=== PATIENT | female | born 1985 | race Caucasian/White ===

== ENCOUNTER 2017-10-24 07:02 | Day surgery (SDC) | payer OTHER, SELFPAY ==
[2017-10-22 08:45] VITALS: BMI 38.4
[2017-10-24] VITALS (7 sets, daily range): BP systolic 107–141; BP diastolic 70–90; PULSE 61–84; RESP 14–17; TEMP 36.1–36.4; O2SAT 93–98; BMI 38.5
--- NOTE | 2017-10-24 07:35 | SUR.OPER ---
Lithotomy on padded OR bed, head on pillow, arms secured on padded arm boards at <90 degrees abduction. Legs secured in padded yellow fins stirrups.
[2017-10-24] MEDS: LACTATED RINGERS 1,000 ML 100 ML IV (07:41)
--- NOTE | 2017-10-24 07:49 | PM.PREOP ---
Pre-operative Note Interval Note Pre-op Check: History & Physical exam performed today
--- NOTE | 2017-10-24 07:50 | PM.HP.1 ---
History of Present Illness Date Patient Seen: 10/24/17 Time Patient Seen: 07:50 Chief complaint: [id number] Narrative: Patient here for an examination under anesthesia with excision of granulation tissue Patient History Medical History Asthma (Acute) External hemorrhoids (Acute) Fracture of both ankles (Acute) Fracture, clavicle (Acute) History of HPV infection (Acute) Family & Social History Social History: household members significant other Tobacco & Substance use: Smoking Status Never smoker Meds Home Medications Medication Instructions Recorded Confirmed Type Breast Pump - Double Electric ea PRN PRN #1 03/18/17 Rx docusate sodium 250 mg PO QDAY #20 cap 06/13/17 Rx oxycodone-acetaminophen 0 tab PO Q4HP PRN #30 06/13/17 Rx levonorgestrel [Mirena] 52 mg INTRAU #0 08/22/17 History hydrocortisone 1 gm TOPICAL BIDP PRN #30 gm 08/28/17 Rx Allergies Allergy/AdvReac Type Severity Reaction Status Date / Time No Known Drug Allergies Allergy Unknown Verified 10/24/17 07:14 [NO KNOWN DRUG ALLERGIES] Exam Vital Signs (past 8 hours): Vital Signs - 8 hr 10/24/17 07:27 Temperature 97.2 F L Pulse Rate 83 Respiratory Rate 16 Blood Pressure 141/90 H Pulse Oximetry 98 Pulse Oximetry 98 Oxygen Delivery Method Room Air Narrative Exam Narrative: HEENT: No thyromegaly, no anterior cervical or supraclavicular lymphadenopathy. Lungs:Clear to auscultation bilaterally, no wheezes. Cardiovascular: Regular rate and rhythm, no murmurs, rubs, or gallops. Abdomen: No scars. No hepatosplenomegaly. No masses palpable. External genitalia: Normal] Vagina: Patient has granulation tissue of the left vaginal wall. The remainder of the exam was difficult due to patient discomfort. Cervix: [Normal] Bimanual exam: 6 Week size uterus. Mobile.] Rectal: [No masses]. Assessment & Plan (1) Granulation tissue at obstetrical laceration site: Current visit: Yes Status: Acute (2) Vaginal bleeding: Current visit: Yes Status: Acute Plan: Assessment/Plan Narrative: Assessment: 32-year-old 1 para 1 with granulation tissue at an obstetrical laceration site Vaginal bleeding Plan: Examination under anesthesia Excision of granulation tissue The risks, benefits, and alternatives to the procedure were explained to the patient. The risks including bleeding or infection. A full capital P AR-Q was held and consent form was signed.
--- NOTE | 2017-10-24 07:53 | P.HP_ITS ---
History of Present Illness Date Patient Seen: 10/24/17 Time Patient Seen: 07:50 Chief complaint: [id number] Narrative: Patient here for an examination under anesthesia with excision of granulation tissue Patient History Medical History Asthma (Acute) External hemorrhoids (Acute) Fracture of both ankles (Acute) Fracture, clavicle (Acute) History of HPV infection (Acute) Family & Social History Social History: household members significant other Tobacco & Substance use: Smoking Status Never smoker Meds Home Medications Medication Instructions Recorded Confirmed Type Breast Pump - Double Electric ea PRN PRN #1 03/18/17 Rx docusate sodium 250 mg PO QDAY #20 cap 06/13/17 Rx oxycodone-acetaminophen 0 tab PO Q4HP PRN #30 06/13/17 Rx levonorgestrel [Mirena] 52 mg INTRAU #0 08/22/17 History hydrocortisone 1 gm TOPICAL BIDP PRN #30 gm 08/28/17 Rx Allergies Allergy/AdvReac Type Severity Reaction Status Date / Time No Known Drug Allergies Allergy Unknown Verified 10/24/17 07:14 [NO KNOWN DRUG ALLERGIES] Exam Vital Signs (past 8 hours): Vital Signs - 8 hr 3 10/24/17 07:27 Temperature 97.2 F L Pulse Rate 83 Respiratory Rate 16 Blood Pressure 141/90 H Pulse Oximetry 98 Pulse Oximetry 98 Oxygen Delivery Method Room Air Narrative Exam Narrative: HEENT: No thyromegaly, no anterior cervical or supraclavicular lymphadenopathy. Lungs:Clear to auscultation bilaterally, no wheezes. Cardiovascular: Regular rate and rhythm, no murmurs, rubs, or gallops. Abdomen: No scars. No hepatosplenomegaly. No masses palpable. External genitalia: Normal] Vagina: Patient has granulation tissue of the left vaginal wall. The remainder of the exam was difficult due to patient discomfort. Cervix: [Normal] Bimanual exam: 6 Week size uterus. Mobile.] Rectal: [No masses]. Assessment & Plan (1) Granulation tissue at obstetrical laceration site: Current visit: Yes Status: Acute (2) Vaginal bleeding: Current visit: Yes Status: Acute Plan: Assessment/Plan Narrative: Assessment: 32-year-old 1 para 1 with granulation tissue at an obstetrical laceration site Vaginal bleeding Plan: Examination under anesthesia Excision of granulation tissue The risks, benefits, and alternatives to the procedure were explained to the patient. The risks including bleeding or infection. A full capital P AR-Q was held and consent form was signed.
[2017-10-24] MEDS: CEFAZOLIN 2 GM/100 ML FROZ.PIGGY IV (08:02)
--- NOTE | 2017-10-24 08:58 | PM.GYNOP.1 ---
Operative Date/Time/Diagnoses - Date of procedure: 10/24/17 Time of procedure: 08:58 Pre-op diagnosis: Vaginal granulation tissue Vaginal bleeding Post-op diagnosis: same Procedure: Procedures Operation Date: 10/24/17 07:45 Actual Procedures Side Surgeon p Exam Under Anesthesia CAMERA TUNING ENGINEER - Excision of Ganulation Tissue Payal Montes MD Patient is a 32-year-old 1 para 1 with granulation tissue of the vagina causing vaginal bleeding Indications: Vaginal granulation tissue at obstetrical laceration site Vaginal bleeding Surgeon: Payal Montes Anesthesia Type: General (LMA) Operative Notes Findings: 3 areas of granulation tissue. A 1 cm area on the left vaginal sidewall midway between the introitus and cervix. A 0.5 cm area of granulation tissue on the left vaginal sidewall approximately 3 cm from the introitus. A 0.5 cm area of granulation tissue at the introitus in the midline. Closure Type: primary Specimen(s): none Estimated blood loss (mL): 2 Blood products transfused: none Procedure in detail: After informed consent was obtained, the patient was taken to the operating room where she was placed in the dorsal supine position. After adequate LMA general anesthesia was achieved, she was placed in the dorsal lithotomy position, and prepped and draped in the usual sterile fashion. A weighted speculum was placed into the vagina. The cervix was examined and was found to be normal. On the left vaginal sidewall there were 2 areas of granulation tissue. These were excised with a # 10 blade and the base of the granulation tissue was cauterized with the Bovie. At the introitus there was a 3rd piece of granulation tissue which was also excised and cauterized. Hemostasis was achieved. The remainder of the vagina was inspected and there were no further areas of granulation tissue. The bivalve speculum was removed from the vagina. Complications: none Post-operative Condition: stable Disposition: PACU Plan for aftercare: Home after recovery
--- NOTE | 2017-10-24 09:39 | SUR.PHASEII ---
patient resting in bed with Aunt and infant at bedside. Pt ready for depart but awaiting father to return from pharmacy. VSS, deneis complaints at this time.
--- NOTE | 2017-10-24 09:51 | SUR.PHASEII ---
resting while waiting for family to return from pharmacy. up ambulatory in department voided without difficulty.
== END 2017-10-24 09:52 | disposition home or self-care (01) ==
PROVIDERS: PCP Obstetrics & Gynecology; Visit Provider Obstetrics & Gynecology
PROC: (CPT 57410; principal; 2017-10-24 07:45)
DX: A58 Granuloma inguinale (principal); N94.10 Unspecified dyspareunia; N93.9 Abnormal uterine and vaginal bleeding, unspecified; J45.909 Unspecified asthma, uncomplicated
CPT/HCPCS: 57135; J0690; J1100; J1885; J2250; J2405; J2704; J3010

== ENCOUNTER → 2019-11-09 12:11 | Outpatient (CLI) | payer OTHER, SELFPAY ==
--- NOTE | 2019-11-09 12:13 | DI.US.S_ITS ---
PROCEDURE: US PELVIC COMPLETE INDICATIONS: IUD; DUB TECHNIQUE: Real-time scanning was performed of the pelvic organs, with image documentation. Additional endovaginal scanning was necessary due to incomplete visualization of the adnexal and endometrial structures by transabdominal scanning. COMPARISON: [facility], US, US PELVIC COMPLETE, 10/21/2017, 9:28. FINDINGS: Transabdominal scanning: Limited scanning through the kidneys shows no hydronephrosis. No pathologic free abdominal or pelvic fluid. Endovaginal scanning: Uterus: Uterus is normal in size at 6.3 x 3.2 x 4.1 cm. The endometrium measures 3-4 mm in combined thickness. Appropriately positioned IUD. Ovaries: Right ovary measures 2.4 x 1.8 x 2.4 cm. Left ovary measures 2.8 x 1.4 x 2.0 cm. There are bilateral simple appearing presumed physiologic follicles measuring up 1.5 cm on the right and 2.5 cm on the left. IMPRESSION: Appropriately positioned IUD. Unremarkable examination as above. Dictated by: Devin Alvarado M.D. on 11/09/2019 at 13:39 Approved by: Devin Alvarado M.D. on 11/09/2019 at 13:45
== END ==
PROVIDERS: PCP Family Medicine; Referring Provider Family Medicine; Visit Provider Family Medicine
DX: N92.0 Excessive and frequent menstruation with regular cycle (principal); T83.83XA Hemorrhage due to genitourinary prosthetic devices, implants and grafts, initial encounter; Y76.8 Miscellaneous obstetric and gynecological devices associated with adverse incidents, not elsewhere classified
CPT/HCPCS: 76830; 76856

== ENCOUNTER → 2020-08-08 15:43 | Outpatient (CLI) | payer OTHER, SELFPAY ==
[2020-08-08] MEDS: COVID-19 VACC #1, MRNA(MOD) 100 MCG/0.5 ML VIAL IM (16:01)
== END ==
PROVIDERS: PCP Family Medicine; Visit Provider Internal Medicine
DX: Z23 Encounter for immunization (principal)
CPT/HCPCS: 0011A; 91301

== ENCOUNTER → 2020-09-06 12:10 | Outpatient (CLI) | payer OTHER, SELFPAY ==
[2020-09-06] MEDS: COVID-19 VACC #2, MRNA(MOD) 100 MCG/0.5 ML VIAL IM (12:16)
== END ==
PROVIDERS: PCP Family Medicine; Visit Provider Internal Medicine
DX: Z23 Encounter for immunization (principal)
CPT/HCPCS: 0012A; 91301

== ENCOUNTER → 2020-12-27 15:44 | Outpatient (CLI) | payer OTHER, SELFPAY ==
--- NOTE | 2020-12-27 15:46 | DI.RAD.S_ITS ---
PROCEDURE: XR ANKLE RT MIN 3V INDICATIONS: rolled R ankle, lat malleolar tender, sharp pain w/walking TECHNIQUE: 3 views of the ankle were acquired. COMPARISON: None. FINDINGS: Bones: No fractures or dislocations. Ankle mortise is normally aligned. No suspicious bony lesions. Soft tissues: No tibiotalar joint effusion. Achilles tendon appears normal. IMPRESSION: No acute fracture. No osseous lesion. If symptoms and/or clinical suspicion for pathology persist, further assessment with repeat, or advanced imaging (e.g., CT, MRI, or bone scan) may be helpful for further assessment. Dictated by: Nishi Escobedo M.D. on 12/27/2020 at 16:10 Approved by: Nishi Escobedo M.D. on 12/27/2020 at 16:10
== END ==
PROVIDERS: PCP Family Medicine; Referring Provider Student in an Organized Health Care Education/Training Program; Visit Provider Student in an Organized Health Care Education/Training Program
DX: M25.471 Effusion, right ankle; M25.571 Pain in right ankle and joints of right foot; S93.401A Sprain of unspecified ligament of right ankle, initial encounter; S96.911A Strain of unspecified muscle and tendon at ankle and foot level, right foot, initial encounter; X58.XXXA Exposure to other specified factors, initial encounter
CPT/HCPCS: 73610

== ENCOUNTER → 2021-11-27 07:37 | Outpatient (CLI) | payer OTHER, SELFPAY ==
--- NOTE | 2021-11-27 | DI.US.S_ITS ---
PROCEDURE: US OB >= 14 WEEKS FETUS INDICATIONS: 20WK ANATOMY SCAN OUTSIDE/PRIOR DATING DATA: Last menstrual period (LMP): 06/27/2021. LMP-based estimated date of delivery (JOBY): 04/03/2022. First dating scan (date and location): 11/27/2021, . Estimated date of delivery (JOBY) from first dating scan: 04/01/2022. TECHNIQUE: Real-time scanning was performed of the fetus, with image documentation and biometric measurements. Endovaginal scanning: Not performed COMPARISON: None. FINDINGS: General: A single living intrauterine gestation is present. Presentation: Breech. Placenta: Placental position is anterior , without previa. Amniotic fluid index: 15.7 cm, normal range is 5-24 cm. Single deepest vertical pocket is 5.1 cm. heart rate: 150 beats per minute. Maternal cervical canal: 4.2 cm long. Normal lower limit is 2.5 cm. biometrics: Biparietal diameter: 5.4 cm, 22 weeks 3 days Head circumference: 20.1 cm, 22 weeks 2 days Abdominal circumference: 17.2 cm, 22 weeks 1 day Femur length: 3.6 cm, 21 weeks 3 days Clinically estimated gestational age: 21 weeks 6 days Composite gestational age from present scan: 22 weeks 1 day Estimated weight and percentile: 458 g, 45th percentile Anatomic survey: Neuro: Ventricles are non-dilated at less than 10 mm. Cisterna magna is normal at 3-11 mm. Cerebellum is normal in size and morphology. Nuchal skin fold: Normal at less than 6 mm between 14-21 weeks gestational age. Face: Nose and lips, facial profile are normal. Spine: No evidence for spina bifida. Heart: 4-chambered heart is present, with normal ventricular outflow tracts. Diaphragm: Diaphragm is intact. Stomach: Left-sided stomach is present. Kidneys: No hydronephrosis. Normal is less than 5 mm in 2nd trimester, less than 7 mm in 3rd trimester. Cord: 3-vessel cord has orthotopic insertion. Bladder: Normal in size. Extremities: All 4 extremities identified. IMPRESSION: 1. Single living intrauterine with gestational age of 21 weeks 6 days by LMP. 2. Normal 2nd trimester anatomy survey. No anomalies detected at this time. We strive to produce accurate, complete, and clear reports of imaging services. To assist us in improving patient care, this report was composed using standard report templates and voice recognition software. Therefore, it may contain abnormal punctuation, insertions and/or omissions. Occasional wrong-word or sound-alike substitutions may occur. Though we review the report and make efforts to correct it, we do recommend that the report be read carefully in proper context to recognize any text inaccuracies. Dictated by: Josh Martin M.D. on 11/27/2021 at 8:57 Approved by: Josh Martin M.D. on 11/27/2021 at 9:05
== END ==
PROVIDERS: PCP Family Medicine; Referring Provider Nurse Practitioner Obstetrics & Gynecology; Visit Provider Nurse Practitioner Obstetrics & Gynecology
DX: Z34.92 Encounter for supervision of normal pregnancy, unspecified, second trimester (principal); Z3A.21 21 weeks gestation of pregnancy
CPT/HCPCS: 76811

== ENCOUNTER → 2022-01-14 07:02 | Outpatient (CLI) | payer OTHER, SELFPAY ==
[2022-01-14 08:19] LABS: Hematocrit 33.9 % (36-46); Mean Corpuscular HGB Conc 35.4 % (30-36); Mean Corpuscular Hemoglobin 30.7 PG (26-34); Mean Corpuscular Volume 86.7 fL (80-100); Platelet Count 216 X10^3/uL (150-400); Red Blood Cell Count 3.91 X10^6/uL (4.0-5.2); Red Cell Distribution Width 13.9 % (11.6-14.8); White Blood Cell Count 7.2 X10^3/uL (4.5-11.0)
[2022-01-14 08:25] LABS: Glucose Fasting Gestational 103 mg/dL (76-95)
[2022-01-14 09:18] LABS: Glucose 1 Hour Gest 220 mg/dL (76-180)
[2022-01-14 10:37] LABS: Glucose Tol Interp,Gestational INTERPRETATION
[2022-01-14 11:16] LABS: Glucose 2 Hour Gest 146 mg/dL (76-155)
[2022-01-14 11:55] LABS: Glucose 3 Hour Gest 84 mg/dL (76-140)
== END ==
PROVIDERS: PCP Family Medicine; Referring Provider Nurse Practitioner Obstetrics & Gynecology; Visit Provider Nurse Practitioner Obstetrics & Gynecology
DX: Z34.90 Encounter for supervision of normal pregnancy, unspecified, unspecified trimester (principal); Z13.1 Encounter for screening for diabetes mellitus; Z3A.26 26 weeks gestation of pregnancy
CPT/HCPCS: 36415; 82951; 82952; 85027

== ENCOUNTER → 2022-01-17 14:31 | Outpatient (CLI) | payer OTHER, SELFPAY ==
--- NOTE | 2022-01-17 16:23 | DIAB.GDA ---
Initial Gestational Diabetes Assessment Name: Laurie Arnold Date: 01/17/22 Time: 240-4p Dx: Gestational Diabetes Provider: Sidney JOBY: 04/04/22 Weeks: 29 Laurie presents today with her partner, Karl. Reports FH of T2Dm on both sides of her family, not her parents. Reports an uncle in his 60s from DM complications. Both grandmothers with T2 and one grandfather and a number of maternal aunts. No PMH of GDM with last . Reports went to 42 weeks and baby was 8#. Forceps at delivery. Very sure she does not want a . She is having a boy! Reports h/o low carb diets. After elevated 141mg/dL screen, reports she cut out most carbs. Since elevated OGTT, she has read multiple articles, listened to multiple podcasts, and ordered a GDM book. 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 Avoids gluten. No formal diagnosis of celiac but IBS-like symptoms with gluten consumption. Has been experiencing insomnia with this . Treating with help from Sidney. She is aware of how sleep impacts FBG. Endorses normal HgA1c in the past and normal glucose screen earlier in of 130s mg/dL. Worries about high FBG from OGTT. States she cannot continue with Sidney if managing GDM with meds. Would like to see Claudiaedmar if she needs medication management. Diet Recall: 8a: low carb bread with butter, egg, cheese, avocado, 1/4c berries 1220p: meat, cheese, pro shake 145p: asuncion no noodles with extra veggies and 1/2 small chip bag 5-7p: keto pizza skillet ; pro and veggie 7-8p: keto ice cream Beverages: 24oz x 3-4 water, +/- electrolyte supplement, calm magnesium powder in water (no diarrhea), coffee with low carb creamer 0-1c Anthropometrics: Ht: 5'3 Wt: 237# reported Prepregnancy wt: unsure; EMR records indicate 214.5# 12/2020 Physical Activity: Walking 30 min daily Self-Monitoring Blood Glucose: Just started checking BG. Plans to check-in with Sidney in one week. One FBG for review in goal, which was surprising to her given her elevated FBG during OGTT. No elevations at 1 hour postprandial, but this is on a very low carb diet. Unclear how high BG would be once she incorporates some carbs. States provider would like to use [employer] guidelines for BG (FBG <90 and 1 hour <130). States she has spoken with provider and would like to follow ACOG/ADA guidelines (FBG <95 and 1 hour <140), and states provider has agreed. RD/GEORGE will evaluate based on this goal unless communicated otherwise. Date Pre Post Pre Post Pre Post HS 01/16 119 97 111 01/17 87 105 114 Diabetes Medications: None Pertinent Labs: OGTT: 103 H; 220 H; 146; 84 Nutrition Rx: REE 2300-2400kcals (indicates about 225g CHO daily. Given very low carb diet, will rec 175g as the min goal for RUBY RAILS DEVELOPER during ) Carbohydrates: Daily: goal of 175g Meal: 45-g lunch and dinner; 30g breakfast Snack: 15-30g Nutrition Diagnosis: Altered nutrition related lab value r/t GDM dx aeb recent OGTT Inadequate CHO intake r/t fear of hyperglycemia aeb pt report and diet recall Intervention: This participant was very receptive. Provided appropriate educational handouts. Discussed the following topics: GDM pathophysiology and impact of hyperglycemia on mom and baby Risk for T2DM for mom and baby in the future Plate Method, meal timing, carb counting, pairing macronutrients and spreading out CHO for better BG management Blood glucose goals (FBG: <95 and 1 hour <140 mg/dL); importance of checking 4x per day (FBG and pc) Impact of macronutrients on blood glucose Recommended servings for carbohydrates at meals and snacks Brainstormed appropriate meal plan based on her food preferences Importance of adequate nutrition AND GDM management Potential for meds prn Encouraged her to gradually increase carb to recs. She did seem hesitant to start at 175g per day. Will cont to monitor. Role of physical activity and following provider guidelines for safety Goals: Check BG 4x per day Continue walking Add carbs to meals Pair carbs/pro Follow-up: LORENZO VAZQUEZ follow-up in two weeks Janelle Salamanca RDN, GEORGE Certified Diabetes Care and Boat Dispatcher T: [phone] F: [phone] [email or web address] Thank you for this referral
== END ==
PROVIDERS: PCP Family Medicine; Referring Provider Nurse Practitioner Obstetrics & Gynecology; Visit Provider Nurse Practitioner Obstetrics & Gynecology
DX: O24.419 Gestational diabetes mellitus in pregnancy, unspecified control (principal); Z3A.29 29 weeks gestation of pregnancy; Z71.3 Dietary counseling and surveillance
CPT/HCPCS: 97802

== ENCOUNTER → 2022-01-31 16:37 | Outpatient (CLI) | payer OTHER, SELFPAY ==
--- NOTE | 2022-01-31 17:30 | DIAB.GDFU ---
Follow-up Gestational Diabetes Assessment Name: Laurie Arnold Date: 01/31/22 Time: 199-121p Dx: Gestational Diabetes Provider: Sidney JOBY: 04/04/22 Weeks: 31 Laurie presents for follow-up visit today. Saw provider and reports she is titrating insulin (Levemir) to meet [employer] SMBG goals (FBG <90 mg/dL). Increasing insulin by 3u q day until FBG in goal per report. See SMBG below. Reports increasing some carb intake, but she is still under MINE TECHNICIAN of 175g per day. Most days consuming around 130-140g CHO. Carb sources mostly from fruit and bread. Eating q 2 hours and feeling quite full. Reports decrease in LE swelling and heartburn over the last two weeks. Swelling reduced from increase in activity? Heartburn likely reduced since eating small frequent meals. Anthropometrics: Ht: 5'3 Wt: 237.2# reported from provider visit today. No change in wt since last visit. Prepregnancy wt: unsure; EMR records indicate 214.5# 12/2020 Physical Activity: Walking 2.2 mi per day. HIIT GDM workouts 4x per week. Self-Monitoring Blood Glucose: After meal readings all in goal. 09/22 elevated FBG per <90mg/dL goal. Date Pre Post Pre Post Pre Post HS 01/25 115 117 92 114 01/26 100 125 123 114 01/27 83 106 116 109 01/28 90 108 131 114 01/29 100 104 108 105 01/30 95 140 114 123 01/31 104 122 104 Diabetes Medications: 14u Levemir HS Pertinent Labs: OGTT: 103 H; 220 H; 146; 84 Nutrition Rx: REE 2300-2400kcals (indicates about 225g CHO daily. Given very low carb diet, will rec 175g as the min goal for MINE TECHNICIAN during ) Carbohydrates: Daily: goal of 175g Meal: 45-g lunch and dinner; 30g breakfast Snack: 15-30g Nutrition Diagnosis: Altered nutrition related lab value r/t GDM dx aeb recent OGTT Inadequate CHO intake r/t fear of hyperglycemia aeb pt report and diet recall- improved Intervention: This participant was very receptive. Provided appropriate educational handouts. Discussed the following topics: Recent blood sugar results and impact of hormones Encouraged adequate CHO intake through the day, may help with FBG Review of macronutrient recommendations during recommendations: OGTT at 6-12 weeks Levemir titration schedule SMBG goals per provider Eating q 3-4 hours if she prefers Goals: Check BG 4x per day- met Continue walking- met Add carbs to meals- met Pair carbs/pro- met Try to eat q 3-4 hours to be more comfortable- new Add 15-30g to low carb dinner or snack- new Titrate insulin as rx'd- new Follow-up: LORENZO VAZQUEZ follow-up in two weeks Janelle Salamanca RDN, GEORGE Certified Diabetes Care and Auto Rental Supervisor T: [phone] F: [phone] [email or web address] Thank you for this referral
== END ==
PROVIDERS: PCP Family Medicine; Referring Provider Nurse Practitioner Obstetrics & Gynecology; Visit Provider Nurse Practitioner Obstetrics & Gynecology
DX: O24.414 Gestational diabetes mellitus in pregnancy, insulin controlled (principal); Z3A.31 31 weeks gestation of pregnancy; Z71.3 Dietary counseling and surveillance
CPT/HCPCS: 97803

== ENCOUNTER → 2022-02-13 14:36 | Outpatient (CLI) | payer OTHER, SELFPAY ==
[2022-02-13 15:01] LABS: Hemoglobin A1C% w Est Avg Glu 5.2 % (4.0-6.0)
== END ==
PROVIDERS: Obstetrics & Gynecology; PCP Family Medicine; Referring Provider Obstetrics & Gynecology; Visit Provider Obstetrics & Gynecology
DX: O24.419 Gestational diabetes mellitus in pregnancy, unspecified control (principal)
CPT/HCPCS: 36415; 83036

== ENCOUNTER → 2022-02-14 12:23 | Outpatient (CLI) | payer OTHER, SELFPAY ==
--- NOTE | 2022-02-14 16:30 | DIAB.GDFU ---
Follow-up Gestational Diabetes Assessment Name: Laurie Arnold Date: 02/14/22 Time: 230-310p Dx: Gestational Diabetes Provider: Lynn JOBY: 04/04/22 Weeks: 33 Laurie presents for follow-up virtual visit via [employer] platform. She has transferred care to OB from [facility] due to insulin managed GDM. Laurie reports she is surprised how much the insulin is helping BG all day. Feeling more comfortable with adding more carbs. 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 Still below target but improved from 130-140g/day. Overall, adding more carb as discussed. Added bread to zucchini noodles. Tried to eat q 3 hours. More than 3hr may feel nauseated. 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 [place] unwell for hours after. Now trying to be more intentional in eating schedule and eating a smoothie that she can eat in sessions under her mask. Currently taking Levemir: 38u now plans to increase to 40u tonight. Was worried 40u would tank BG, but feels more comfortable now. Based on weight and trimester, at 1u/kg calculation indicates 54.5u HS. Given current BG, likely does not need 54u but rather titrate up until FBG <95 mg/dL. Discussed the room for insulin she has and titration schedule for BG goals: 2u q 2-3 days until in goal unless provider recs otherwise. Recent carb intake (yesterday) Sn: 15g B: 30g L: 30g Sn: 25g D: 40g Sn: 20g Total: 160g Ht: 5'3 Wt: 240# last OB visit Prepregnancy wt: unsure; EMR records indicate 214.5# 12/2020 Physical Activity: Walking q day at least 10 min after meals. Still HIIT 3-4 x per week Self-Monitoring Blood Glucose: All but one pc readings in goal. 08/23 elevated FBG. Plans to increase Levemir to 40u tonight. Date Pre Post Pre Post Pre Post HS 02/08 97 124 109 112 02/09 91 141 101 130 02/10 98 114 125 120 02/11 96 97 110 95 02/12 85 110 127 117 02/13 99 97 118 134 1h 112 2h 02/14 93 95 1h 91 2h 104 Diabetes Medications: Levemir 38units HS Pertinent Labs: OGTT: 103 H; 220 H; 146; 84 Nutrition Rx: REE 2300-2400kcals (indicates about 225g CHO daily. Given very low carb diet, will rec 175g as the min goal for MERCHANDISE PROCESSOR during ) Carbohydrates: Daily: goal of 175g Meal: 45-g lunch and dinner; 30g breakfast Snack: 15-30g Nutrition Diagnosis: Altered nutrition related lab value r/t GDM dx aeb recent OGTT Inadequate CHO intake r/t fear of hyperglycemia aeb pt report and diet recall- improved Intervention: This participant was very receptive. Provided appropriate educational handouts. Discussed the following topics: Recent blood sugar results and impact of food and hormones Review of macronutrient recommendations during and encouraged 175g CHO per day Reviewed BG goals Insulin titration recs Benefits, resources, and nutrition for recommendations for nutrition and physical activity recommendations for T2DM risk reduction OGTT at 6-12 weeks Checking blood sugars twice per week (goal: fasting <100 mg/dL and 2 hour pc <140 mg/dL) until 6 week check-up HgA1c q 1-3 years. Goals: Try to eat q 3-4 hours to be more comfortable- met Add 15-30g to low carb dinner or snack- met Titrate insulin as rx'd- met Titrate insulin tonight to 40u- new Continue to increase carbs to meet 175g per day- new Complete recs: HgA1c 3-6 months , BG checks prn, and OGTT - new Follow-up: LORENZO VAZQUEZ follow-up prn. Laurie seems to be managing BG well and has a good understanding of nutrition. Encouraged her to reach out with any questions or follow-up needs. She agreed to this plan. Janelle Salamanca RDN, [facility] Certified Diabetes Care and Home Health Lvn T: [phone] F: [phone] [email or web address] Thank you for this referral
== END ==
PROVIDERS: PCP Family Medicine; Referring Provider Obstetrics & Gynecology; Visit Provider Obstetrics & Gynecology
DX: O24.414 Gestational diabetes mellitus in pregnancy, insulin controlled (principal); Z3A.33 33 weeks gestation of pregnancy; Z71.3 Dietary counseling and surveillance
CPT/HCPCS: 97803

== ENCOUNTER 2022-02-19 09:43 | Outpatient (CLI) | payer OTHER, SELFPAY ==
--- NOTE | 2022-02-19 10:51 | P.TNLD_ITS ---
Visit Information Visit Information Date of evaluation: 02/19/22 Primary OB Provider: Alix Bailey Reason for Evaluation: Yes non-stress test Comments/Additional reasons for admission: Patient is here for a nonstress test for insulin-dependent GDM. She is 33+wks EGA. [facility] Medical History (Updated 02/15/22 @ 18:32 by Alix Bailey MD) Asthma External hemorrhoids Forceps delivery Fracture of both ankles Fracture, clavicle Granulation tissue at obstetrical laceration site History of HPV infection Pain and swelling of right ankle Presence of intrauterine contraceptive device (08/27/17) Sprain and strain of ankle Surgical History (Updated 02/07/22 @ 10:03 by Ernestine Centeno, RN) History of removal of skin mole Status post surgery (10/24/17) [place] teeth extracted Family History (Updated 02/07/22 @ 10:10 by Ernestine Centeno, RN) Grandfather Diabetes mellitus Alzheimer's dementia Father Hypertension Diverticulosis Alcoholism Grandmother COPD (chronic obstructive pulmonary disease) Grandmother Diabetes mellitus Family/Other Diabetes mellitus Family/Other Diabetes mellitus Sister Depression Mother Depression Personality disorder Family/Other Alcoholism Social History marital status: unmarried,living together household members: significant other lives independently: Yes housing: apartment pets and animals: No education level: college (David's degree) 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[employer], 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) current occupational exposures/hazards: No special aníbal needs: No travel history: recent (domestic and [place] only) seatbelt use: always helmet use: Yes water heater temp set < 120 deg: Yes working smoke detector in home: Yes fire extinguisher in home: Yes carbon monox detector in home: Yes firearms in home: No do you feel safe at home: Yes Smoking Status: Former smoker (Quit at age 27) Tobacco: How many years used: 10 second hand exposure: No (occasional w/ clients) alcohol intake: former (5-6/month when not ) substance use type: does not use during the past year weight has: increased > 10 lbs well-balanced diet: daily or most days daily servings fruits/ve or more times/day caffeine: Yes (aware of 200mg limit) Type(s) of exercise: walking, regular exercise ( HIIT) and yoga frequency: 3-4 times per week Evaluation Evaluation Baseline heart rate: 150 Variability: Moderate (11-25) monitor accelerations: Present Monitor Decelerations: Absent Category of Tracing: Reactive Comments: No contractions Diagnosis, Plan/Disposition Plan/Disposition Plan: reactive NST. Reassuring NST. Keep routine appointment in the office this week. OB Disposition: home
== END 2022-02-19 10:49 | disposition home or self-care (01) ==
LOC: LABOR 10:44 → OB 02-26 14:11
PROVIDERS: PCP Family Medicine; Referring Provider Obstetrics & Gynecology; Visit Provider Obstetrics & Gynecology
DX: O24.414 Gestational diabetes mellitus in pregnancy, insulin controlled (principal); Z3A.33 33 weeks gestation of pregnancy
CPT/HCPCS: 59025; G0378; G0379

== ENCOUNTER → 2022-02-20 15:37 | Outpatient (CLI) | payer OTHER, SELFPAY ==
--- NOTE | 2022-02-20 15:38 | DI.US.S_ITS ---
PROCEDURE: US OB LIMITED INDICATIONS: GROWTH OUTSIDE/PRIOR DATING DATA: Last menstrual period (LMP): June 27, 2021. LMP-based estimated date of delivery (JOBY): April 03, 2022. First dating scan (date and location): November 27, 2021. Estimated date of delivery (JOBY) from first dating scan: April 01, 2022. The calculations are made using the clinical JOBY of April 03, 2022. TECHNIQUE: Real-time scanning was performed of the fetus, with image documentation and biometric measurements. Endovaginal scanning: Not performed COMPARISON: None. FINDINGS: General: A single living intrauterine gestation is present. Presentation: Vertex. Placenta: Placental position is anterior right , without previa. Amniotic fluid index: 5.6 cm, normal range is 5-24 cm. Single deepest vertical pocket is 2.4 cm. heart rate: 137 beats per minute. Maternal cervical canal: 4.9 cm long. Normal lower limit is 2.5 cm. biometrics: Biparietal diameter: 8.6 cm, 34 weeks and 4 days Head circumference: 30.5 cm, 34 weeks and 0 days Abdominal circumference: 30.9 cm, 34 weeks and 6 days Femur length: 6.3 cm, 32 weeks and 4 days Clinically estimated gestational age: 34 weeks and 0 days Composite gestational age from present scan: 34 weeks and 0 days Estimated weight and percentile: 2355 g which correlates with the 47th percentile Other: Not applicable. IMPRESSION: 1. Single living intrauterine gestation with estimated sonographic gestational age of approximately 34 weeks and 0 days which measures concordant with clinical dates. Estimated weight is approximately 2355 g which correlates with the 47th percentile. 2. Borderline low four-quadrant DON measuring 5.6 cm with deepest vertical pocket measuring 2.4 cm. We strive to produce accurate, complete, and clear reports of imaging services. To assist us in improving patient care, this report was composed using standard report templates and voice recognition software. Therefore, it may contain abnormal punctuation, insertions and/or omissions. Occasional wrong-word or sound-alike substitutions may occur. Though we review the report and make efforts to correct it, we do recommend that the report be read carefully in proper context to recognize any text inaccuracies. Dictated by: Phillip Thompson M.D. on 02/20/2022 at 16:46 Approved by: Phillip Thompson M.D. on 02/20/2022 at 16:51
== END ==
PROVIDERS: PCP Family Medicine; Referring Provider Obstetrics & Gynecology; Visit Provider Obstetrics & Gynecology
DX: O24.419 Gestational diabetes mellitus in pregnancy, unspecified control (principal); Z3A.34 34 weeks gestation of pregnancy
CPT/HCPCS: 76815

== ENCOUNTER → 2022-02-26 10:15 | Outpatient (CLI) | payer OTHER, SELFPAY ==
--- NOTE | 2022-02-26 10:15 | DI.US.S_ITS ---
PROCEDURE: US OB FOLLOW UP INDICATIONS: Recheck DON. Borderline low 4 quadrant DON TECHNIQUE: Real-time scanning was performed of the fetus, with image documentation. Endovaginal scanning: Not performed COMPARISON: 02/20/2022 FINDINGS: A single living intrauterine gestation is present. Presentation: Cephalic. Placenta: Placental position is anterior, without previa. Amniotic fluid index: 4.9 centimeters, deepest pocket 1.5 centimeters. heart rate: 150 beats per minute. Maternal cervical canal: 4.3 cm long. Normal lower limit is 2.5 cm. IMPRESSION: Single living intrauterine with borderline oligohydramnios. DON is 4.9 centimeters with deepest pocket 1.5 centimeters. Total DON and deepest pocket both decreased from 02/20/2022 exam. Dictated by: Hans Alaniz M.D. on 02/26/2022 at 11:02 Approved by: Hans Alaniz M.D. on 02/26/2022 at 11:04
== END ==
PROVIDERS: PCP Family Medicine; Referring Provider Obstetrics & Gynecology; Visit Provider Obstetrics & Gynecology
DX: O28.8 Other abnormal findings on antenatal screening of mother (principal); O24.419 Gestational diabetes mellitus in pregnancy, unspecified control
CPT/HCPCS: 76816

== ENCOUNTER 2022-02-26 16:43 | Outpatient (CLI) | payer OTHER, SELFPAY ==
--- NOTE | 2022-02-26 17:28 | PM.OBTRLD ---
Visit Information Visit Information Date of evaluation: 02/26/22 Primary OB Provider: Alix Bailey On-call OB Provider: Rhianna Valles Reason for Evaluation: Yes non-stress test non-stress test reason: other (Decreased amniotic fluid ) Comments/Additional reasons for admission: Patient was asked to come to labor and delivery for evaluation for low amniotic fluid volume seen on follow-up ultrasound Vital Signs Vital Signs: Blood pressure 131/82, pulse 90, temperature 97.5? [facility] Medical History (Updated 02/27/22 @ 14:10 by Rhianna Valles MD) Asthma External hemorrhoids Forceps delivery Fracture of both ankles Fracture, clavicle Granulation tissue at obstetrical laceration site History of HPV infection Pain and swelling of right ankle Presence of intrauterine contraceptive device (08/27/17) Sprain and strain of ankle Surgical History (Updated 02/07/22 @ 10:03 by Ernestine Centeno, RN) History of removal of skin mole Status post surgery (10/24/17) [place] teeth extracted Family History (Updated 02/07/22 @ 10:10 by Ernestine Centeno, RN) Grandfather Diabetes mellitus Alzheimer's dementia Father Hypertension Diverticulosis Alcoholism Grandmother COPD (chronic obstructive pulmonary disease) Grandmother Diabetes mellitus Family/Other Diabetes mellitus Family/Other Diabetes mellitus Sister Depression Mother Depression Personality disorder Family/Other Alcoholism Social History marital status: unmarried,living together household members: significant other lives independently: Yes housing: apartment pets and animals: No education level: college (David's degree) 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[employer], 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) current occupational exposures/hazards: No special aníbal needs: No travel history: recent (domestic and [place] only) seatbelt use: always helmet use: Yes water heater temp set < 120 deg: Yes working smoke detector in home: Yes fire extinguisher in home: Yes carbon monox detector in home: Yes firearms in home: No do you feel safe at home: Yes Smoking Status: Former smoker (Quit at age 27) Tobacco: How many years used: 10 second hand exposure: No (occasional w/ clients) alcohol intake: former (5-6/month when not ) substance use type: does not use during the past year weight has: increased > 10 lbs well-balanced diet: daily or most days daily servings fruits/ve or more times/day caffeine: Yes (aware of 200mg limit) Type(s) of exercise: walking, regular exercise ( HIIT) and yoga frequency: 3-4 times per week Evaluation Evaluation Baseline heart rate: 140 Variability: Moderate (11-25) monitor accelerations: Present Monitor Decelerations: Absent Contraction Frequency (minutes): 0 Category of Tracing: Reactive Status: Category l Non-invasive Membranes Rupture Test: negative Diagnosis, Plan/Disposition Final Diagnosis (1) DON (amniotic fluid index) borderline low: Status: Acute (2) GDM, class A2: Status: Acute (3) 34 weeks gestation of : Status: Acute Plan/Disposition Plan: Patient is a insulin requiring gestational diabetic who on biophysical profile performed on 02/20/2022 for insulin requiring gestational diabetes was found to have borderline low amniotic fluid volume. Otherwise normal biophysical profile. A repeat biophysical profile performed today shows a slightly decreased amniotic fluid volume otherwise normal biophysical profile and reactive nonstress test with negative AmniSure. The patient's findings were discussed with perinatologist Dr. Avitia at the [facility] who agrees with ryan the patient not getting betamethasone due to her insulin-requiring diabetes, repeat biophysical profile on Friday and the patient has an appointment at the [facility] perinatology on Friday the . Precautions reviewed with the patient. She was discharged home. OB Disposition: home
== END 2022-02-26 18:15 | disposition home or self-care (01) ==
LOC: LABOR 18:19 → OB 02-28 11:05
PROVIDERS: PCP Family Medicine; Referring Provider Obstetrics & Gynecology; Visit Provider Obstetrics & Gynecology
DX: O41.03X0 Oligohydramnios, third trimester, not applicable or unspecified (principal); O24.414 Gestational diabetes mellitus in pregnancy, insulin controlled; Z3A.34 34 weeks gestation of pregnancy; O28.8 Other abnormal findings on antenatal screening of mother
CPT/HCPCS: 59025; 76815; 76816; 84112; G0378; G0379

== ENCOUNTER 2022-03-01 09:25 | Outpatient (CLI) | payer OTHER, SELFPAY ==
--- NOTE | 2022-03-01 11:18 | P.TNLD_ITS ---
Visit Information Visit Information Date of evaluation: 03/01/22 Primary OB Provider: Alix Bailey On-call OB Provider: Rhianna Valles Reason for Evaluation: Yes non-stress test non-stress test reason: diabetes and other (decreased amniotic fluid) Vital Signs Vital Signs: Blood pressure 116/75, pulse 72, temperature 97.6? [facility] Medical History (Updated 03/01/22 @ 12:11 by Rhianna Valles MD) Asthma (~1999) External hemorrhoids Forceps delivery Fracture of both ankles Fracture, clavicle Granulation tissue at obstetrical laceration site History of HPV infection Pain and swelling of right ankle Presence of intrauterine contraceptive device (08/27/17) Skin cancer (~2017) Sprain and strain of ankle Surgical History (Updated 02/27/22 @ 20:34 by Maci Diehl) Anesthesia History of removal of skin mole Status post surgery (10/24/17) [place] teeth extracted Family History (Updated 02/27/22 @ 20:36 by Maci Diehl) Grandfather Diabetes mellitus Alzheimer's dementia Cancer Hypertension Father Hypertension Diverticulosis Alcoholism Grandmother COPD (chronic obstructive pulmonary disease) Grandmother Diabetes mellitus Cancer Hypertension Family/Other Diabetes mellitus Family/Other Diabetes mellitus Sister Depression Mother Depression Personality disorder Family/Other Alcoholism Social History marital status: unmarried,living together household members: significant other lives independently: Yes housing: apartment pets and animals: No education level: college (David's degree) 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[employer], 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) current occupational exposures/hazards: No special aníbal needs: No travel history: recent (domestic and [place] only) seatbelt use: always helmet use: Yes water heater temp set < 120 deg: Yes working smoke detector in home: Yes fire extinguisher in home: Yes carbon monox detector in home: Yes firearms in home: No do you feel safe at home: Yes Smoking Status: Former smoker (Quit at age 27) Tobacco: How many years used: 10 second hand exposure: No (occasional w/ clients) alcohol intake: former (5-6/month when not ) substance use type: does not use during the past year weight has: increased > 10 lbs well-balanced diet: daily or most days daily servings fruits/ve or more times/day caffeine: Yes (aware of 200mg limit) Type(s) of exercise: walking, regular exercise ( HIIT) and yoga frequency: 3-4 times per week Review of Systems Review of Systems Narrative: Patient denies any leakage of fluid. The patient's blood sugars are under good control in fact she decreased her p.m. insulin due to her fastings being low. Evaluation Evaluation Baseline heart rate: 140 Variability: Moderate (11-25) monitor accelerations: Present Monitor Decelerations: Absent Category of Tracing: Reactive Status: Category l Comments: On ultrasound there was good movement, tone, breathing. There was a vertical pocket of fluid that measured 3.8 cm with a total DON of 5.8. Measurement is improved although subjectively same amount of fluid as before, just a pocket of fluid without cord was found this time. Diagnosis, Plan/Disposition Final Diagnosis (1) DON (amniotic fluid index) borderline low: Status: Acute (2) 35 weeks gestation of : Status: Acute (3) GDM, class A2: Status: Acute Plan/Disposition Plan: Patient will return in 2 days for repeat nonstress test and biophysical profile. She will then have a follow-up appointment 2 days after with [facility]. Routine precautions reviewed. OB Disposition: home
== END 2022-03-01 11:05 | disposition home or self-care (01) ==
LOC: OB 03-05 13:00
PROVIDERS: PCP Family Medicine; Referring Provider Obstetrics & Gynecology; Visit Provider Obstetrics & Gynecology
DX: O24.414 Gestational diabetes mellitus in pregnancy, insulin controlled (principal); O41.03X0 Oligohydramnios, third trimester, not applicable or unspecified; Z3A.35 35 weeks gestation of pregnancy
CPT/HCPCS: 59025; 76815; G0378; G0379

== ENCOUNTER 2022-03-03 16:07 | Outpatient (CLI) | payer OTHER, SELFPAY ==
--- NOTE | 2022-03-03 16:45 | P.TNLD_ITS ---
Visit Information Visit Information Date of evaluation: 03/03/22 Primary OB Provider: Alix Bailey On-call OB Provider: Rhianna Valles Reason for Evaluation: Yes non-stress test non-stress test reason: diabetes and other (Decreased amniotic fluid) Vital Signs Vital Signs: Blood pressure 102/69, pulse 93, temperature 35.7? [facility] Medical History (Updated 03/01/22 @ 12:11 by Rhianna Valles MD) Asthma (~1999) External hemorrhoids Forceps delivery Fracture of both ankles Fracture, clavicle Granulation tissue at obstetrical laceration site History of HPV infection Pain and swelling of right ankle Presence of intrauterine contraceptive device (08/27/17) Skin cancer (~2017) Sprain and strain of ankle Surgical History (Updated 02/27/22 @ 20:34 by Maci Diehl) Anesthesia History of removal of skin mole Status post surgery (10/24/17) [place] teeth extracted Family History (Updated 02/27/22 @ 20:36 by Maci Diehl) Grandfather Diabetes mellitus Alzheimer's dementia Cancer Hypertension Father Hypertension Diverticulosis Alcoholism Grandmother COPD (chronic obstructive pulmonary disease) Grandmother Diabetes mellitus Cancer Hypertension Family/Other Diabetes mellitus Family/Other Diabetes mellitus Sister Depression Mother Depression Personality disorder Family/Other Alcoholism Social History marital status: unmarried,living together household members: significant other lives independently: Yes housing: apartment pets and animals: No education level: college (David's degree) 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[employer], 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) current occupational exposures/hazards: No special aníbal needs: No travel history: recent (domestic and [place] only) seatbelt use: always helmet use: Yes water heater temp set < 120 deg: Yes working smoke detector in home: Yes fire extinguisher in home: Yes carbon monox detector in home: Yes firearms in home: No do you feel safe at home: Yes Smoking Status: Former smoker (Quit at age 27) Tobacco: How many years used: 10 second hand exposure: No (occasional w/ clients) alcohol intake: former (5-6/month when not ) substance use type: does not use during the past year weight has: increased > 10 lbs well-balanced diet: daily or most days daily servings fruits/ve or more times/day caffeine: Yes (aware of 200mg limit) Type(s) of exercise: walking, regular exercise ( HIIT) and yoga frequency: 3-4 times per week Evaluation Evaluation Baseline heart rate: 150 Variability: Moderate (11-25) monitor accelerations: Present Monitor Decelerations: Absent Contraction Frequency (minutes): 0 Category of Tracing: Reactive Status: Category l Comments: Ultrasound was performed. Good movement, tone, breathing. Fetus is vertex. Although subjectively low DON, DON measurement of 8.8. Diagnosis, Plan/Disposition Final Diagnosis (1) 35 weeks gestation of : Status: Acute (2) DON (amniotic fluid index) borderline low: Status: Acute (3) GDM, class A2: Status: Acute Plan/Disposition Plan: Patient is discharged home she has an appointment in 2 days at the [facility] perinatology for follow-up of low DON OB Disposition: home
== END 2022-03-03 17:00 | disposition home or self-care (01) ==
LOC: OB 03-07 11:23
PROVIDERS: PCP Family Medicine; Referring Provider Specialist; Visit Provider Specialist
DX: O24.414 Gestational diabetes mellitus in pregnancy, insulin controlled (principal); O41.03X0 Oligohydramnios, third trimester, not applicable or unspecified; Z3A.35 35 weeks gestation of pregnancy
CPT/HCPCS: 59025; 76815; G0378; G0379

== ENCOUNTER 2022-03-08 10:09 | Outpatient (CLI) | payer OTHER, SELFPAY | END 2022-03-08 10:44 | disposition home or self-care (01) | LOC: LABOR 10:54 → OB 03-11 08:52 | PROVIDERS: PCP Family Medicine; Referring Provider Obstetrics & Gynecology; Visit Provider Obstetrics & Gynecology | DX: O24.414 Gestational diabetes mellitus in pregnancy, insulin controlled (principal); Z3A.36 36 weeks gestation of pregnancy | CPT/HCPCS: 59025; G0378; G0379 ==

== ENCOUNTER 2022-03-10 09:58 | Outpatient (CLI) | payer OTHER, SELFPAY ==
--- NOTE | 2022-03-10 11:28 | P.TNLD_ITS ---
Visit Information Visit Information Date of evaluation: 03/10/22 Primary OB Provider: Alix Bailey Reason for Evaluation: Yes non-stress test non-stress test reason: diabetes (A2) [facility] Medical History (Updated 03/01/22 @ 12:11 by Rhianna Valles MD) Asthma (~1999) External hemorrhoids Forceps delivery Fracture of both ankles Fracture, clavicle Granulation tissue at obstetrical laceration site History of HPV infection Pain and swelling of right ankle Presence of intrauterine contraceptive device (08/27/17) Skin cancer (~2017) Sprain and strain of ankle Surgical History (Updated 02/27/22 @ 20:34 by Maci Diehl) Anesthesia History of removal of skin mole Status post surgery (10/24/17) [place] teeth extracted Family History (Updated 02/27/22 @ 20:36 by Maci Diehl) Grandfather Diabetes mellitus Alzheimer's dementia Cancer Hypertension Father Hypertension Diverticulosis Alcoholism Grandmother COPD (chronic obstructive pulmonary disease) Grandmother Diabetes mellitus Cancer Hypertension Family/Other Diabetes mellitus Family/Other Diabetes mellitus Sister Depression Mother Depression Personality disorder Family/Other Alcoholism Social History marital status: unmarried,living together household members: significant other lives independently: Yes housing: apartment pets and animals: No education level: college (David's degree) 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[employer], 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) current occupational exposures/hazards: No special aníbal needs: No travel history: recent (domestic and [place] only) seatbelt use: always helmet use: Yes water heater temp set < 120 deg: Yes working smoke detector in home: Yes fire extinguisher in home: Yes carbon monox detector in home: Yes firearms in home: No do you feel safe at home: Yes Smoking Status: Former smoker (Quit at age 27) Tobacco: How many years used: 10 second hand exposure: No (occasional w/ clients) alcohol intake: former (5-6/month when not ) substance use type: does not use during the past year weight has: increased > 10 lbs well-balanced diet: daily or most days daily servings fruits/ve or more times/day caffeine: Yes (aware of 200mg limit) Type(s) of exercise: walking, regular exercise ( HIIT) and yoga frequency: 3-4 times per week Evaluation Evaluation Baseline heart rate: 150 Variability: Moderate (11-25) monitor accelerations: Present Monitor Decelerations: Absent Category of Tracing: Reactive Diagnosis, Plan/Disposition Plan/Disposition Plan: Assessment: 36 year old at 36 +3 wks gestations with GDM A2 Reactive NST Plan: F/U 2 days for repeat NST Cervical ripening 03/13/22 OB Disposition: home
== END 2022-03-10 10:50 | disposition home or self-care (01) ==
LOC: OB 03-12 10:34
PROVIDERS: PCP Family Medicine; Referring Provider Obstetrics & Gynecology; Visit Provider Obstetrics & Gynecology
DX: O24.414 Gestational diabetes mellitus in pregnancy, insulin controlled (principal); Z3A.36 36 weeks gestation of pregnancy
CPT/HCPCS: 59025; G0378; G0379

== ENCOUNTER 2022-03-12 10:12 | Outpatient (CLI) | payer OTHER, SELFPAY | END 2022-03-12 11:10 | disposition home or self-care (01) | LOC: OB 03-15 08:02 | PROVIDERS: PCP Family Medicine; Referring Provider Obstetrics & Gynecology; Visit Provider Obstetrics & Gynecology | DX: O09.523 Supervision of elderly multigravida, third trimester (principal); O24.414 Gestational diabetes mellitus in pregnancy, insulin controlled; Z3A.36 36 weeks gestation of pregnancy | CPT/HCPCS: 59025; G0378; G0379 ==

== ENCOUNTER 2022-03-13 18:35 | Inpatient (IN) | payer OTHER, SELFPAY ==
[2022-03-13 19:21] VITALS: BP 140/82
[2022-03-13 20:52] LABS: COVID19 -Nasal RAPID Negative (Negative)
[2022-03-13 21:21] LABS: Add Manual Diff / Slide Review NO; Basophils Absolute Auto 0 /uL (0-100); Basophils Percent Auto 0.4 % (0-2); Eosinophils Absolute Auto 100 /uL (0-450); Eosinophils Percent Auto 0.5 % (2-4); Hematocrit 37.6 % (36-46); Hemoglobin 12.5 g/dL (12.0-16.0); Lymphocytes Absolute Auto 1900 /uL (1100-4500); Lymphocytes Percent Auto 18.8 % (25-40); Mean Corpuscular HGB Conc 33.4 % (30-36); Mean Corpuscular Hemoglobin 29.9 PG (26-34); Mean Corpuscular Volume 89.6 fL (80-100); Monocytes Absolute Auto 600 /uL (0-900); Monocytes Percent Auto 6.1 % (3-14); Neutrophils Absolute Auto 7400 /uL (1500-7000); Neutrophils Percent Auto 74.2 % (50-75); Platelet Count 205 X10^3/uL (150-400); Red Blood Cell Count 4.19 X10^6/uL (4.0-5.2); Red Cell Distribution Width 14.2 % (11.6-14.8)
[2022-03-13] MEDS: DINOPROSTONE VAG (CERVIDIL) 10 MG VAG (21:23)
[2022-03-14] MEDS: LACTATED RINGERS 1,000 ML 100 ML IV (10:12)
[2022-03-14] MEDS: OXYTOCIN PREMIX 30 UNIT/500 ML PLAST..BAG IV (10:13)
--- NOTE | 2022-03-14 18:51 | PM.OBHP.IH.1 ---
OB HPI Date/Time Date of admission: 03/13/22 Date Patient Seen: 03/14/22 Time Patient Seen: 08:00 History of Present Condition Chief complaint: Induction JOBY Calculator Estimated Delivery Date Method Current WG Current Estimate 04/04/22 LMP (Certain) 37w 0d Other Estimates 04/03/22 Ultrasound #1 37w 1d 04/04/22 Manual 37w 0d Estimated Gestational Age (weeks): 37 : 2 Para: 1 care: good care and pounds weight gain (25) Dating criteria OB: LMP confirmed by 1st trimester US Ultrasounds: normal 1st trimester US and normal mid trimester US Obstetrical complications: gestational diabetes Medical complications OB: none Indications Indication for induction OB: gestational diabetes Preadmission Labs Last OB Lab Results: Blood Type A Positive 03/13/22 20:58 Antibody Screen Negative 03/13/22 20:58 Hematocrit 37.6 % (36-46) 03/13/22 20:58 Hemoglobin 12.5 g/dL (12.0-16.0) 03/13/22 20:58 Hepatitis B Surface Antigen NEGATIVE S/C (NEGATIVE-) 10/18/16 11:59 Hepatitis C Antibody NEGATIVE S/C (NEGATIVE-) 10/18/16 11:59 Varicella-Zoster IgG Antibody 640.20 Index (< 135.00-) H 10/18/16 11:59 Glucose 1 Hour 133 mg/dL 03/01/17 12:45 Group B Streptococcus (PCR) Negative for GBS (Negative-) 05/07/17 08:18 -: Chlamydia screen: negative, Gonorrhea screen: negative and Urine: negative -: PAP smear: Normal External Labs -: Urine: negative Prior (ies) Past Pregnancies Del. Date GA/Weeks Labor Lgth Wt Sex Route Outcome Anesthesia Place Delv Breastfeed Preg Comp Name 06/12/17 42 48 8 lb 3 oz Male vaginal forceps live - full term epidural IH 9 months post-dates induction oligohydramnios Raman Evaluation Evaluation Baseline heart rate: 130 Variability: Moderate (11-25) monitor accelerations: Present Monitor Decelerations: Absent Contraction Frequency (minutes): 6 Uterine Contraction Intensity: Mild Status: Category l Dilation (cm): 1 Effacement (%): 75 Dilation: 1-2 cm Effacement: 60-70% station: -1 Position of cervix: mid Consistency: medium Muro score: 7 [facility] Medical History (Updated 03/01/22 @ 12:11 by Rhianna Valles MD) Asthma (~1999) External hemorrhoids Forceps delivery Fracture of both ankles Fracture, clavicle Granulation tissue at obstetrical laceration site History of HPV infection Pain and swelling of right ankle Presence of intrauterine contraceptive device (08/27/17) Skin cancer (~2018) Sprain and strain of ankle Surgical History (Updated 02/27/22 @ 20:34 by Maci Diehl) Anesthesia History of removal of skin mole Status post surgery (10/24/17) [place] teeth extracted Family History (Updated 02/27/22 @ 20:36 by Maci Diehl) Grandfather Diabetes mellitus Alzheimer's dementia Cancer Hypertension Father Hypertension Diverticulosis Alcoholism Grandmother COPD (chronic obstructive pulmonary disease) Grandmother Diabetes mellitus Cancer Hypertension Family/Other Diabetes mellitus Family/Other Diabetes mellitus Sister Depression Mother Depression Personality disorder Family/Other Alcoholism Social History marital status: unmarried,living together household members: significant other lives independently: Yes housing: apartment pets and animals: No education level: college (David's degree) 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[employer], 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) current occupational exposures/hazards: No special aníbal needs: No travel history: recent (domestic and [place] only) seatbelt use: always helmet use: Yes water heater temp set < 120 deg: Yes working smoke detector in home: Yes fire extinguisher in home: Yes carbon monox detector in home: Yes firearms in home: No do you feel safe at home: Yes Smoking Status: Former smoker Tobacco: How many years used: 10 second hand exposure: No (occasional w/ clients) alcohol intake: former (5-6/month when not ) substance use type: does not use during the past year weight has: increased > 10 lbs well-balanced diet: daily or most days daily servings fruits/ve or more times/day caffeine: Yes (aware of 200mg limit) Type(s) of exercise: walking, regular exercise ( HIIT) and yoga frequency: 3-4 times per week Meds Home Medications and Allergies Home Medications Medication Instructions Recorded Confirmed Type acetaminophen 325 mg capsule 650 mg PO Q4H PRN Pain, Mild 11/17/21 03/14/22 History (Tylenol) albuterol sulfate 90 mcg/actuation 2 puff inhalation Q4-6H PRN 11/17/21 03/14/22 Rx aerosol inhaler shortness of breath or wheezing #8.5 grams pyridoxine (vitamin B6) PO DAILY 11/17/21 03/08/22 History fluticasone propionate 230 2 puff inhalation BID #12 grams 12/17/21 03/14/22 Rx mcg-salmeterol 21 mcg/actuation HFA inhaler (Advair HFA) prenat.vits,dhara,[id number] 1 tab PO DAILY 02/07/22 03/14/22 History insulin detemir U-100 100 unit/mL 46 unit (0.46 mL) SUBCUT QPM #15 mL 02/19/22 03/14/22 Rx (3 mL) subcutaneous pen Allergies Allergy/AdvReac Type Severity Reaction Status Date / Time hydrocodone Allergy Rash Verified 03/08/22 08:59 Vicryl Allergy Mild Uncoded 03/08/22 08:59 general anesthesia AdvReac Intermediate Vomiting Uncoded 03/08/22 08:59 OB Exam Narrative Exam Narrative: Generally: Patient sitting on birthing ball, no acute distress Lungs: Clear to auscultation bilaterally Cardiovascular: Regular rate and rhythm Fundal height: 39 cm Estimated weight: 7 lb Extremities: Trace edema, 1+ DTRs Objective Labs Result Diagrams: 03/13/22 20:58 Labs: Laboratory Results - last 24 hr 03/13/22 03/13/22 03/13/22 20:08 20:58 20:58 WBC 10.0 RBC 4.19 Hgb 12.5 Hct 37.6 MCV 89.6 MCH 29.9 MCHC 33.4 RDW 14.2 Plt Count 205 Neut % (Auto) 74.2 Lymph % (Auto) 18.8 L Dougherty % (Auto) 6.1 Eos % (Auto) 0.5 L Baso % (Auto) 0.4 Neut # (Auto) 7400 H Lymph # (Auto) 1900 Dougherty # (Auto) 600 Eos # (Auto) 100 Baso # (Auto) 0 SARS-CoV-2 (PCR) Negative Blood Type A Positive Antibody Screen Negative Assessment and Plan Assessment and Plan Assessment and Plan narrative: Assessment: 36-year-old 2 para 1 with gestational diabetes, A2 for induction of labor at 37 weeks gestation Plan: Begin Pitocin per protocol 1 Expected management to spontaneous vaginal delivery Follow blood sugars and treat accordingly Time Spent with Patient Total time spent with greater than 50% in coordination of care (as documented) at patient's floor/unit and/or counseling patient:: 15-24 minutes
--- NOTE | 2022-03-14 18:57 | PM.OBPNLAB ---
Date/Time Date Patient Seen: 03/14/22 Time Patient Seen: 17:35 Pain Control Pain control: tolerating well Pelvic Exam Dilation (cm): 1 Effacement (%): 75 station: -1 Contractions Contractions on admission: none Monitor mode: External Pitocin rate (mU/min): 14 Contraction frequency (min): 3 Contraction duration (min): 1 Contraction pattern: Regular Contraction intensity: Mild Status status: Category l Heart Rate Baseline: 130 Monitor Accelerations: Present Monitor Decelerations: Absent Monitor Variability: Moderate Assessment and Plan Assessment: induction ongoing Comments: D/C Pitocin Patient may eat and shower Misoprostol overnight Restart Pitocin in the morning Levimir 30 U at hs Expectant management to
[2022-03-14] MEDS: miSOPROStoL 100 MCG TABLET 50 MCG PO (22:13)
[2022-03-14] MEDS: INSULIN SUBCUT (22:14)
[2022-03-14] MEDS: LEVEMIR 100 UNIT/ML SUBCUT (22:14)
[2022-03-15] MEDS: miSOPROStoL 100 MCG TABLET 50 MCG PO ×2 (02:04→06:10)
[2022-03-15] MEDS: OXYTOCIN PREMIX 30 UNIT/500 ML PLAST..BAG IV (10:42)
[2022-03-15] MEDS: LACTATED RINGERS 1,000 ML 100 ML IV (14:27)
[2022-03-15] MEDS: FENT 2MCG/ML BUPIV 0.125% EPI 200 MCG/100 ML PLAST..BAG 6 MCG EPIDURAL (17:48)
--- NOTE | 2022-03-15 18:03 | PM.OBPNLAB ---
Date/Time Date Patient Seen: 03/15/22 Time Patient Seen: 07:45 Pain Control Pain control: tolerating well Pelvic Exam Dilation (cm): 2 Effacement (%): 75 station: -2 Amniotic membrane status: Intact Contractions Contractions on admission: none Monitor mode: External Contraction frequency (min): 7 Contraction pattern: Regular Contraction intensity: Mild Status status: Category l Heart Rate Baseline: 145 Monitor Accelerations: Present Monitor Decelerations: Absent Monitor Variability: Moderate Assessment and Plan Assessment: induction ongoing Comments: Will check cervix at 0830 and decide on Pitocin AROM mid morning Expectant management to
--- NOTE | 2022-03-15 18:04 | PM.OBPNLAB ---
Date/Time Date Patient Seen: 03/15/22 Time Patient Seen: 18:05 Pain Control Pain control: epidural Pelvic Exam Dilation (cm): 4 Effacement (%): 90 station: 0 Amniotic membrane status: Ruptured (1037) Contractions Contractions on admission: none Monitor mode: External Pitocin rate (mU/min): 0 Contraction frequency (min): 3 Contraction duration (min): 1 Contraction pattern: Regular Contraction intensity: Strong/Firm Status status: Category l Heart Rate Baseline: 145 Monitor Accelerations: Present Monitor Decelerations: Absent Monitor Variability: Moderate Assessment and Plan Assessment: active labor Comments: Restart Pitocin Side to side Expectant management to
[2022-03-15] MEDS: ONDANSETRON 4 MG/2 ML INJ IV (23:41)
[2022-03-15] MEDS: CALCIUM CARBONATE 500 MG TAB PO (23:48)
--- NOTE | 2022-03-16 02:26 | PM.OBPRVD ---
Events: Gestational Diabetes (on insulin), Labor Induction and Oligohydramnios Labor & Delivery Delivery date: 03/16/22 Cervical ripening method: per Cervidil protocol (and misoprostol) Induction method: per pitocin protocol Delivery augmentation: rupture of membranes Delivery monitor: external FHT and external uterine Route of delivery: Episiotomy description: None L&D Laceration Description: Perineal - 2nd Degree Delivery repair: chromic (2-0) Quantitative Blood Loss: 200 Anesthesia Type: Epidural Complications: None Narrative: Patient complete and pushed for 20 minutes. At 1:51 a.m., a live male delivered spontaneously in the JENN presentation over an intact perineum. No nuchal cord. The remainder of the body delivered without difficulty and placed on mom's abdomen. The cord was double clamped and cut after 10 minutes. Cord bloods were obtained. Pitocin was given in the IV fluids. The placenta delivered intact with a three-vessel cord at 2:06 a.m.. Fundus was firm. A second-degree perineal laceration was repaired with 2-0 chromic in the usual fashion. Hemostasis was achieved. Apgars 8 at 1 minute and 8 at 5 minutes. QBL 200 cc. Epidural analgesia. . Instrument, 4 x 4, and lap counts correct. Mom and stable to recovery. Baby 1: gender: Male Presentation: vertex Position: Right Occiput Anterior Placenta delivery description: Spontaneous Cord Vessel Description: 3 Vessels, Reduced and Clamped/Cut score (1 min): 8 score (5 min): 8 Plan for aftercare: Routine care
[2022-03-16 02:32] VITALS: BP 120/60; PULSE 67; RESP 18; TEMP 36.1
[2022-03-16] MEDS: IBUPROFEN 600 MG TABLET PO ×3 (03:53→23:31)
[2022-03-16] MEDS: ACETAMINOPHEN 325 MG TABLET 650 MG PO ×3 (03:53→23:31)
[2022-03-16] MEDS: DERMOPLAST SPRAY 20% 60 ML 1 SPRAY TOP (03:55)
--- NOTE | 2022-03-16 06:35 | PC.NURSE ---
0400 second bag of Oxytocin hung for continued trickling. FF. ML. Will cont. to monitor.
--- NOTE | 2022-03-16 13:08 | PM.OBPN.1 ---
Subjective - OB Subjective Patient comments: no complaints [place] baby status: doing well and nursing well [place] feeding status: exclusively breast feeding Date Patient Seen: 03/16/22 Time Patient Seen: 13:09 Interval history: Patient is a 36 year old day # 0-1 status post spontaneous vaginal delivery after induction of labor at 37 weeks gestation due to gestational diabetes and oligohydramnios. They are doing well. is going well. She is having some tenderness at the perineum. Bleeding is already tapering. She has voided twice. Exam Narrative Exam Narrative: Generally: Patient is sitting up in bed, no acute distress Fundus: Firm at U -1 Extremities: 1+ edema, negative Homans Objective Labs Result Diagrams: 03/13/22 20:58 Assessment & Plan Plan day: 0 plan OB: routine care Comments: Anticipate D/C tomorrow Time Spent With Patient Time: Total time spent is greater than 50% in coordination of care (as documented) at patient's floor/unit and/or counseling patient: Time with patient: 15-24 minutes
[2022-03-16] MEDS: OXYCODONE IR 5 MG TABLET PO ×2 (15:23→20:45)
[2022-03-16] MEDS: DOCUSATE 100 MG CAPSULE PO (23:43)
[2022-03-16] MEDS: PRENATAL VIT,CALC/IRON/FOLIC 1 TABLET 1 TAB PO (23:44)
[2022-03-17] MEDS: OXYCODONE IR 5 MG TABLET PO (01:56)
[2022-03-17] MEDS: IBUPROFEN 600 MG TABLET PO (04:54)
[2022-03-17] MEDS: ACETAMINOPHEN 325 MG TABLET 650 MG PO (04:54)
[2022-03-17 05:58] LABS: Hematocrit 29.6 % (36-46); Hemoglobin 10.1 g/dL (12.0-16.0)
[2022-03-17] MEDS: PRENATAL VIT,CALC/IRON/FOLIC 1 TABLET 1 TAB PO (09:09)
[2022-03-17] MEDS: DOCUSATE 100 MG CAPSULE PO (09:09)
[2022-03-17] MEDS: MEASLES,MUMPS,RUBELLA VACC/PF 0.5 ML VIAL SUBCUT (09:33)
--- NOTE | 2022-03-30 18:48 | PM.OBDS.1 ---
Discharge Providers Provider Date of admission: 03/13/22 18:35 Discharge Date: 03/17/22 Primary care physician: More Hendricks MD Consults: 03/13/22 20:26 Consult to Anesthesiology Urgent Comment: Consulting Provider: Phillip Oliva Reason for consultation: Labor Epidural 03/17/22 02:21 Consult to Tonal Regulator Routine Comment: Discharge provider: Payal Montes MD Summary Hospital Course Date Patient Seen: 03/17/22 Time Patient Seen: 11:30 Diagnoses: Thirty-seven weeks gestation Insulin-dependent gestational diabetes Cervical ripening Induction of labor Spontaneous vaginal delivery Second-degree laceration and repair Hospital Course: Patient is a 36-year-old 2 para 2 who presented on March 13, 2022 for cervical ripening. On the morning of 1026 she was started on Pitocin. At 7:00 p.m. she was 1 cm/75% effaced/-1 station. The Pitocin was discontinued she was allowed to eat and shower. She received 30 units of Levemir that evening at bedtime. On the morning of 1027 she was 2 cm/75% effaced/-1 station. She was started on Pitocin. She had a ruptured membranes at 10:30 a.m.. At 6:00 p.m. she was 4 cm/90%/0 station. She delivered on March 16, 2022 at 1:51 a.m.. She had 20 minutes of pushing. She had a second-degree perineal laceration. She was discharged home on day #1-2. was going well. Bleeding was tapering. Peripartum Data Infant Delivery Method: Natural Vaginal Laceration Description: Perineal - 2nd Degree Episiotomy description: None Procedures: Cervical ripening Pitocin induction of labor Artificial rupture of membranes Epidural analgesia Spontaneous vaginal delivery Second-degree perineal laceration repair complications: none [place] 1: Gender: Male Disposition of : home Status at Discharge Cognitive/behavioral status at discharge: oriented Functional status at discharge: independent ambulation Overall status at discharge: patient is progressing back to baseline Time Spent with Patient Time attestation: Total time spent providing and/or coordinating discharge services: Time spent: Less than 30 minutes Objective Labs Result Diagrams: 03/17/22 05:45 Exam Narrative Exam Narrative: Generally: Patient is sitting up in bed, holding infant, no acute distress Fundus: Firm at U -1 Extremities: Negative Homans, trace edema Discharge Plan Discharge Plan Patient Disposition: Home Provider Discharge Comment: Call with fever, chills or bleeding vaginally more than a pad in an hour Tylenol 650 mg every 6 hours as needed Ibuprofen 600 - 800 mg every 6 hours as needed for cramping Push oral fluids Discharge orders & Medications Prescriptions: Continued acetaminophen [Tylenol] 325 mg capsule 650 mg PO Q4H PRN (Reason: Pain, Mild) prenat.vits,dhara,[id number] Tablet 1 tab PO DAILY Follow up/Referrals: Payal Montes MD [Physician] - 6 Weeks (My office will call patient on March 18, 2022 to schedule 6 week visit.) Diet/Activity/Treatments Diet: Regular Activity: Nothing in the vagina for 6 weeks Skin/Wound/Dressing Care Report to your healthcare provider any signs of infection, such as:: chills, fever, increased pain and unusual drainage Visit Report/Discharge Packet Instructions: DI for Labor and Delivery, Vaginal Discharge Data Primary Care Provider: More Hendricks
== END 2022-03-17 11:10 | disposition home or self-care (01) | DRG 807 ==
PROVIDERS: Admitting Provider Obstetrics & Gynecology; PCP Family Medicine; Referring Provider Obstetrics & Gynecology; Visit Provider Obstetrics & Gynecology
DX: O24.424 Gestational diabetes mellitus in childbirth, insulin controlled (principal); Z37.0 Single live birth; Z3A.37 37 weeks gestation of pregnancy; O70.1 Second degree perineal laceration during delivery; O09.523 Supervision of elderly multigravida, third trimester; Z3A.36 36 weeks gestation of pregnancy; Z20.822 Contact with and (suspected) exposure to COVID-19
CPT/HCPCS: 01967; 36415; 59025; 59050; 59200; 59409; 59410; 85014; 85018; 85025; 86850; 86900; 86901; 87635; C9803; G0379; J2405; J2590

== ENCOUNTER → 2022-11-28 09:26 | Outpatient (CLI) | payer OTHER, SELFPAY ==
[2022-11-28 12:54] LABS: TSH w/ Reflex to FT4 1.12 uIU/mL (0.47-4.68)
[2022-11-29 04:30] LABS: x Labcorp Estim. Avg Glu (eAG) 108 mg/dL (.); x Labcorp Hemoglobin A1c 5.4 % (4.8-5.6)
== END ==
PROVIDERS: PCP Family Medicine; Referring Provider Family Medicine; Visit Provider Family Medicine
DX: O24.419 Gestational diabetes mellitus in pregnancy, unspecified control (principal); Z13.29 Encounter for screening for other suspected endocrine disorder
CPT/HCPCS: 36415; 83036; 84443

== ENCOUNTER → 2023-02-24 18:05 | Outpatient (CLI) | payer OTHER, SELFPAY ==
--- NOTE | 2023-02-24 18:07 | DI.RAD.S_ITS ---
PROCEDURE: XR ANKLE LT MIN 3V INDICATIONS: left ankle pain TECHNIQUE: 3 views of the ankle were acquired. COMPARISON: [facility], CR, XR ANKLE RT MIN 3V, 12/27/2020, 16:02. FINDINGS: Bones: No fractures or dislocations. Ankle mortise is normally aligned. No suspicious bony lesions. Soft tissues: No tibiotalar joint effusion. Achilles tendon appears normal. IMPRESSION: No acute fracture. No osseous lesion. If symptoms and/or clinical suspicion for pathology persist, further assessment with repeat, or advanced imaging (e.g., CT, MRI, or bone scan) may be helpful for further assessment. Dictated by: Nishi Escobedo M.D. on 02/24/2023 at 18:27 Approved by: Nishi Escobedo M.D. on 02/24/2023 at 18:28
== END ==
PROVIDERS: PCP Family Medicine; Referring Provider Physician Assistant; Visit Provider Physician Assistant
DX: M25.572 Pain in left ankle and joints of left foot (principal)
CPT/HCPCS: 73610

== ENCOUNTER → 2023-05-16 13:55 | Outpatient (CLI) | payer OTHER, SELFPAY ==
--- NOTE | 2023-05-16 | DI.MRI.S_ITS ---
PROCEDURE: MR ANKLE LT WO CON INDICATIONS: ANKLE INSTABILITY TECHNIQUE: Noncontrast sagittal T1 spin echo and T2 fast spin echo with fat saturation, axial proton density fast spin echo and T2 fast spin echo with fat saturation, coronal T1 spin echo and T2 fast spin echo with fat saturation through the ankle/hindfoot. COMPARISON: [facility], CR, XR ANKLE LT MIN 3V, 02/24/2023, 18:16. [facility], CR, XR ANKLE 3 VIEWS WEIGHT BEARING LEFT, 05/06/2023, 15:58. FINDINGS: Image quality: Excellent. Bones and joints: No bone marrow contusions or fractures. No hindfoot coalitions. Lateral talar dome measuring 3 x 3 x 2 mm with cartilage loss and irregularity of the subchondral plate. No loose osteochondral fragment is seen. Small tibiotalar effusion. A nonedematous ossification is seen adjacent to the distal fibular tip, likely the sequela of a remote prior avulsion injury. Small nonedematous posterior and plantar calcaneal enthesophytes. Mild nonspecific subcutaneous edema surrounding the ankle. Medial structures: The deep and superficial layers of the deltoid ligament appear intact. The spring ligament components are intact. The posterior tibialis, flexor digitorum longus, and flexor hallucis longus tendons are intact. The posterior tibial neurovascular bundle appears normal within the tarsal tunnel, without extrinsic mass effect. Lateral structures: There is chronic tearing and osseous avulsion of the fibular attachment of the anterior talofibular ligament and the calcaneofibular ligament with ligament thickening. Chronic low-grade sprain of the posterior talofibular ligament. The anterior and posterior tibiofibular ligaments appear intact. The peroneus longus and brevis tendons demonstrate mild tendinosis. Lobular ganglion cyst arising from the lateral sinus tarsi measures 22 x 8 x 14 mm. Anterior structures: The tibialis anterior, extensor hallucis longus, and extensor digitorum longus tendons appear intact. The dorsal talonavicular ligament appears intact. Posterior and plantar structures: Achilles tendon is intact. The proximal plantar fascia is intact. No abductor digiti quinti muscle atrophy to suggest Akers neuropathy. IMPRESSION: 1. Small chronic osteochondral lesion at the lateral talar dome measuring 3 mm with cartilage loss and mild irregularity of the subchondral plate but no loose osteochondral fragment. 2. Chronic tearing and osseous avulsion of the fibular attachments of the anterior talofibular ligament and calcaneofibular ligament. Remote prior low-grade sprain of the posterior talofibular ligament. 3. Mild peroneus brevis and longus tendinosis. 4. Lobular ganglion cyst extending superiorly from the lateral sinus tarsi measuring 22 x 14 x 8 mm. Approved by: Josh Fabian M.D. on 05/20/2023 at 8:52
== END ==
LOC: MRI 13:56
PROVIDERS: PCP Family Medicine; Referring Provider Orthopaedic Surgery Foot and Ankle Surgery; Visit Provider Orthopaedic Surgery Foot and Ankle Surgery
DX: M25.372 Other instability, left ankle (principal); S93.412A Sprain of calcaneofibular ligament of left ankle, initial encounter; S93.492A Sprain of other ligament of left ankle, initial encounter; M67.472 Ganglion, left ankle and foot; M89.9 Disorder of bone, unspecified
CPT/HCPCS: 73721

== ENCOUNTER → 2023-10-31 10:16 | Outpatient (CLI) | payer OTHER, SELFPAY ==
[2023-10-31 11:13] LABS: Influenza A - CEPHEID Flu A NEGATIVE (NEGATIVE); Influenza B - CEPHEID Flu B NEGATIVE (NEGATIVE); Respiratory Syncytial Virus Negative (Negative)
[2023-10-31 12:44] LABS: COVID-19 CEPHEID 4-PLEX PCR Negative (Negative)
== END ==
PROVIDERS: PCP Family Medicine; Visit Provider Nurse Practitioner Family
DX: J02.9 Acute pharyngitis, unspecified (principal); R05.1 Acute cough
CPT/HCPCS: 0241U; 87070

== ENCOUNTER → 2024-07-25 12:18 | Outpatient (CLI) | payer OTHER, SELFPAY ==
[2024-07-25 13:38] LABS: Influenza A - CEPHEID Flu A NEGATIVE (NEGATIVE); Influenza B - CEPHEID Flu B POSITIVE (NEGATIVE); Respiratory Syncytial Virus Negative (Negative)
[2024-07-25 13:39] LABS: COVID-19 CEPHEID 4-PLEX PCR Negative (Negative)
== END ==
PROVIDERS: PCP Family Medicine; Visit Provider Nurse Practitioner Family
DX: R05.1 Acute cough (principal)
CPT/HCPCS: 0241U; 87070

== ENCOUNTER → 2024-07-25 12:49 | Outpatient (CLI) | payer OTHER, SELFPAY ==
--- NOTE | 2024-07-25 12:50 | DI.RAD.S_ITS ---
PROCEDURE: XR CHEST 2V INDICATIONS: Cough TECHNIQUE: 2 views of the chest were acquired. COMPARISON: None. FINDINGS: Surgical changes and devices: None. Lungs and pleura: Lungs are clear. No pleural effusions or pneumothorax. Mediastinum: Mediastinal contours are normal. Heart size is normal. Bones and chest wall: No suspicious bony abnormalities. Soft tissues appear unremarkable. IMPRESSION: No acute cardiopulmonary abnormality is seen. Dictated by: Rajani Verdin M.D. on 07/25/2024 at 12:45 Approved by: Rajani Verdin M.D. on 07/25/2024 at 12:46
== END ==
LOC: RAD 12:50
PROVIDERS: PCP Family Medicine; Referring Provider Nurse Practitioner Family; Visit Provider Nurse Practitioner Family
DX: R05.1 Acute cough (principal)
CPT/HCPCS: 0241U; 71046; 87070

== ENCOUNTER → 2024-09-03 07:19 | Outpatient (CLI) | payer OTHER, SELFPAY ==
[2024-09-03 08:13] LABS: Hematocrit 39.5 % (36-46); Hemoglobin 13.5 g/dL (12.0-16.0); Mean Corpuscular HGB Conc 34.2 % (30-36); Mean Corpuscular Hemoglobin 29.9 PG (26-34); Mean Corpuscular Volume 87.6 fL (80-100); Platelet Count 290 X10^3/uL (150-400); Red Blood Cell Count 4.51 X10^6/uL (4.0-5.2); Red Cell Distribution Width 13.7 % (11.6-14.8)
[2024-09-03 08:26] LABS: Hemoglobin A1C% w Est Avg Glu 5.4 % (4.0-6.0)
[2024-09-03 08:37] LABS: Alanine Aminotransferase 32 IU/L (<35); Albumin 4.2 g/dL (3.5-5.0); Albumin Globulin Ratio 1.6 (1.0-2.8); Alkaline Phosphatase 59 U/L (38-126); Aspartate Aminotransferase 29 IU/L (14-36); BUN Creatinine Ratio 13.7 (6-22); Bilirubin Total 0.6 mg/dL (0.2-1.3); Blood Urea Nitrogen 10 mg/dL (7-17); Calcium 9.3 mg/dL (8.4-10.2); Carbon Dioxide 24 mmol/L (22-32); Chloride 106 mmol/L (98-107); Cholesterol 180 mg/dL (140-199); Estimated Glomerular Filt Rate > 60 mL/min (>60); Globulin 2.7 g/dL (1.7-4.1); Glucose 102 mg/dL (70-100); HDL Cholesterol 45 mg/dL (40-60); HEMOLYSIS < 15 (0-50); LDL Cholesterol Calculated 107 mg/dL (<100); Potassium 4.1 mmol/L (3.4-5.1); Sodium 138 mmol/L (137-145); Total Protein 6.9 g/dL (6.3-8.2); Triglycerides 138 mg/dL (35-150)
[2024-09-03 09:08] LABS: Thyroid Stimulating Hormone 2.17 uIU/mL (0.47-4.68)
[2024-09-06 17:08] LABS: Deamidated Gliadin Ab IgA 5 units (0-19); Deamidated Gliadin Ab IgG <1 units (0-19); Immunoglobulin A,Qn 142 mg/dL (87-352); t-Transglutaminase IgA 2 U/mL (0-3)
== END ==
PROVIDERS: PCP Family Medicine; Referring Provider Family Medicine; Visit Provider Family Medicine
DX: Z91.018 Allergy to other foods (principal); Z13.1 Encounter for screening for diabetes mellitus; Z13.29 Encounter for screening for other suspected endocrine disorder; Z13.220 Encounter for screening for lipoid disorders; Z00.00 Encounter for general adult medical examination without abnormal findings
CPT/HCPCS: 36415; 80053; 80061; 82784; 83036; 83516; 84443; 85027

== ENCOUNTER → 2025-02-09 15:06 | Outpatient (CLI) | payer OTHER, SELFPAY ==
--- NOTE | 2025-02-09 15:08 | DI.MG.S_ITS ---
MM screening mammo BI: 02/09/2025. BI-RADS: 1 CLINICAL: 39-year old female for bilateral screening mammogram. Tyrer-Cuzick lifetime risk of 10.5%. No personal or first-degree family history of breast cancer. PRIOR EXAMS: No prior examinations available. This is a baseline mammogram. MAMMOGRAPHY TECHNIQUE: 2D and 3D (tomosynthesis) digital mammographic views obtained, with additional images as needed for full coverage. Current study was also evaluated with a Computer Aided Detection (CAD) system. DENSITY B. There are scattered areas of fibroglandular density. MAMMOGRAPHY FINDINGS Bilateral: No suspicious mass, asymmetry, microcalcification, or other abnormality seen. IMPRESSION: * No evidence of malignancy. RECOMMENDATIONS Bilateral * Annual screening mammography. OVERALL ASSESSMENT CATEGORY BI-RADS-1: Negative. The [employer] recommends annual screening mammography beginning at age 40 for women with average risk of breast cancer. ELECTRONICALLY SIGNED: Josh Fabian M.D. on 02/10/2025 at 10:21:47 AM PT Interpreting Station ID: [id number]
== END ==
LOC: MAMMO 15:07
PROVIDERS: PCP Family Medicine; Referring Provider Family Medicine; Visit Provider Family Medicine
DX: Z12.31 Encounter for screening mammogram for malignant neoplasm of breast (principal)
CPT/HCPCS: 77063; 77067

== ENCOUNTER → 2025-02-22 15:56 | Outpatient (CLI) | payer OTHER, SELFPAY ==
[2025-02-22 17:24] LABS: TSH w/ Reflex to FT4 1.33 uIU/mL (0.47-4.68)
== END ==
PROVIDERS: PCP Family Medicine; Referring Provider Family Medicine; Visit Provider Family Medicine
DX: K52.9 Noninfective gastroenteritis and colitis, unspecified (principal)
CPT/HCPCS: 36415; 83516; 84443

== ENCOUNTER → 2025-02-28 12:14 | Outpatient (CLI) | payer OTHER, SELFPAY ==
[2025-02-28 20:30] LABS: Clostridium Difficile Tox PCR Negative for C. diff (Negative)
== END ==
PROVIDERS: PCP Family Medicine; Referring Provider Family Medicine; Visit Provider Family Medicine
DX: K52.9 Noninfective gastroenteritis and colitis, unspecified (principal)
CPT/HCPCS: 83993; 87045; 87177; 87493

== ENCOUNTER → 2025-04-29 06:51 | Outpatient (CLI) | payer OTHER, SELFPAY ==
--- NOTE | 2025-04-29 06:52 | DI.US.S_ITS ---
PROCEDURE: US ABDOMEN COMPLETE INDICATIONS: Postprandial right upper quadrant pain TECHNIQUE: Real-time scanning was performed of the abdominal and retroperitoneal organs, with image documentation. COMPARISON: None. FINDINGS: Liver: Enlarged measuring 18.8 cm and increased in echogenicity. Gallbladder: Numerous nonmobile gallstones, largest measuring 2.5 cm. No wall thickening or pericholecystic fluid. Sonographic Goldsmith sign is reportedly positive. Biliary ducts: Intrahepatic bile ducts are non-dilated. Extrahepatic bile duct caliber measures 4.8 mm. Normal is 6-7 mm or less in diameter, or 10 mm or less post-cholecystectomy. Pancreas: Visualized portions of the pancreas are sonographically normal. Miscellaneous: No free abdominal fluid. IMPRESSION: 1. Liver is enlarged and increased in echogenicity, consistent with hepatic steatosis. 2. Numerous nonmobile gallstones measuring up to 2.5 cm. No wall thickening or pericholecystic fluid. Sonographic Goldsmith sign is reportedly positive, recommend clinical correlation. Approved by: Pedro Mahajan M.D. on 04/29/2025 at 10:42
== END ==
LOC: US 06:52
PROVIDERS: PCP Family Medicine; Referring Provider Surgery; Visit Provider Surgery
DX: K80.20 Calculus of gallbladder without cholecystitis without obstruction (principal); R10.13 Epigastric pain; R16.0 Hepatomegaly, not elsewhere classified
CPT/HCPCS: 76700